=== PATIENT | male | born 2000 | race Two or more races ===

== ENCOUNTER 2025-01-01 17:30 | Emergency (ER) | payer OTHER ==
[~2025-01-01] VITALS: Ht 180.3 cm; Wt 105.0 kg
[2025-01-01 17:34] VITALS: TEMP 98.2
[2025-01-01 17:40] VITALS: BP 131/74; PULSE 81; RESP 17; O2SAT 100
[2025-01-01] MEDS ORDERED: DOXY-354 PO (18:40)
[2025-01-01] MEDS: DOXYCYCLINE HYCLATE 100 MG TABLET PO ONE (18:55)
== END 2025-01-01 19:10 | disposition home or self-care (01) ==
LOC: EMS 17:30
DX: L08.9 Local infection of the skin and subcutaneous tissue, unspecified (principal); F17.210 Nicotine dependence, cigarettes, uncomplicated; X58.XXXD Exposure to other specified factors, subsequent encounter
CPT/HCPCS: 99283